=== PATIENT | female | born 1955 | race Caucasian/White ===

== ENCOUNTER 2020-03-11 21:59 | Emergency (ER) | payer SELFPAY ==
--- NOTE | 2020-03-11 23:44 | EDM.PDOC ---
<Irwin Savage - Last Filed: 03/11/20 23:44> ED HPI GENERAL MEDICAL PROBLEM - General Chief Complaint: Chest Pain Stated Complaint: CHEST PAIN/BACK PAIN Time Seen by Provider: 03/11/20 23:07 Source of Information: Reports: Patient, RN Notes Reviewed - History of Present Illness INITIAL COMMENTS - FREE TEXT/NARRATIVE: 64 yr old female comes in with pleuritic chest pain that started yesterday, continues today, ant chest pain is worse to take a deep breath. she also has back pain worse with motion and after standing for awhile. When asked if the pain radiates to her shoulder or arm she states her shoulder and arms always hurt. When asked about coughing she starts I always cough from smoking but not currently coughing any worse than ususal. No known fever. 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 Chest Pain Score (Numeric/FACES): 10 Upper Back Pain Score (Numeric/FACES): 10 - Related Data Allergies Allergy/AdvReac Type Severity Reaction Status Date / Time aspirin Allergy Severe Indigestion Verified 03/11/20 22:36 Home Meds: Home Meds Acetaminophen [Tylenol] 500 mg PO ASDIRECTED 03/11/20 [History] Past Medical History Musculoskeletal History: Reports: Arthritis, Back Pain, Chronic - Past Surgical History HEENT Surgical History: Reports: Tonsillectomy Female Surgical History: Reports: Tubal Ligation Social & Family History - Tobacco Use Smoking Status *Q: Current Every Day Smoker Years of Tobacco use: 47 Packs/Tins Daily: 0.5 - Caffeine Use Caffeine Use: Reports: Coffee, Soda - Recreational Drug Use Recreational Drug Use: No ED ROS GENERAL - Review of Systems Review Of Systems: See Below Constitutional: Denies: Fever, Chills, Diaphoresis HEENT: Reports: No Symptoms Respiratory: Reports: Shortness of Breath (mild, chronically) Cardiovascular: Reports: Chest Pain. Denies: Edema GI/Abdominal: Denies: Abdominal Pain, Nausea, Vomiting Musculoskeletal: Reports: Shoulder Pain, Arm Pain, Back Pain Skin: Reports: No Symptoms. Denies: Rash Neurological: Denies: Trouble Speaking, Difficulty Walking, Weakness ED EXAM, GENERAL - Physical Exam Exam: See Below General Appearance: Alert, No Apparent Distress Eye Exam: Bilateral Eye: PERRL Head: Atraumatic Neck: Supple Respiratory/Chest: Lungs Clear, Normal Breath Sounds, Chest Non-Tender, Respiratory Distress (mild tachypnea) Cardiovascular: Regular Rate, Rhythm GI/Abdominal: Soft, Non-Tender Extremities: Normal Inspection. No: Pedal Edema, Leg Pain, Increased Warmth, Redness Neurological: Alert, Oriented, No Motor/Sensory Deficits Skin Exam: Warm, Dry, Normal Color, No Rash EKG INTERPRETATION EKG Date: 03/11/20 Rhythm: NSR Earth: Normal QRS: RBBB ST-T: Other (Large t waves V3 V6) Course - Re-Assessments/Exams Free Text/Narrative Re-Assessment/Exam: 03/11/20 23:50 It is well after end of my shift, have seen patient to get things started. EKG shows RBB, CXR nl. Her pain is pleuritic. Labs are still all pending. Will transfer care at this time to Dr Rosales. 03/11/20 23:45 Departure - Departure Disposition: [facility] Clinical Impression: Musculoskeletal chest pain, Elevated d-dimer Referrals: Nanda Luciano [employer] [Primary Care Provider] - Forms: ED Department Discharge Sepsis Event Note (ED) - Evaluation Sepsis Screening Result: No Definite Risk <Zack Rosales - Last Filed: 03/12/20 01:49> Course - Vital Signs Last Recorded V/S: Last Vital Signs Temp 36.2 C 03/11/20 22:27 Pulse 97 03/11/20 22:27 Resp 25 H 03/11/20 22:27 BP 182/104 H 03/11/20 22:27 Pulse Ox 97 03/11/20 22:27 - Orders/Labs/Meds Orders: Active Orders 24 hr Category Date Time Status EKG 12 Lead [EKG Documentation Completion] [RC] STAT Care 03/11/20 23:08 Active Ang Chest [CT] Stat Exams 03/12/20 00:53 Stop Req Chest 1V Frontal [CR] Stat Exams 03/11/20 23:08 Taken CORONAVIRUS COVID-19 PCR PHL Stat Lab 03/12/20 00:55 Ordered Labs: Laboratory Tests 03/11/20 03/11/20 03/11/20 Range/Units 23:14 23:14 23:41 WBC (3.98-10.04) K/mm3 RBC (3.98-5.22) M/mm3 Hgb (11.2-15.7) gm/dl Hct (34.1-44.9) % MCV (79.4-94.8) fl MCH (25.6-32.2) pg MCHC (32.2-35.5) g/dl RDW Std Deviation (36.4-46.3) fL Plt Count (182-369) K/mm3 MPV (9.4-12.3) fl Neut % (Auto) (34.0-71.1) % Lymph % (Auto) (19.3-51.7) % [place] % (Auto) (4.7-12.5) % Eos % (Auto) (0.7-5.8) Baso % (Auto) (0.1-1.2) % Neut # (Auto) (1.56-6.13) K/mm3 Lymph # (Auto) (1.18-3.74) K/mm3 [place] # (Auto) (0.24-0.36) K/mm3 Eos # (Auto) (0.04-0.36) K/mm3 Baso # (Auto) (0.01-0.08) K/mm3 Manual Slide Review D-Dimer, Quantitative (0.19-0.50) mg/L Sodium (136-145) mEq/L Potassium (3.5-5.1) mEq/L Chloride (98-107) mEq/L Carbon Dioxide (21-32) mEq/L Anion Gap (5-15) BUN (7-18) mg/dL Creatinine (0.55-1.02) mg/dL Est Cr Clr Drug Dosing mL/min Estimated GFR (MDRD) (>60) mL/min BUN/Creatinine Ratio (14-18) Glucose (80-115) mg/dL Calcium (8.5-10.1) mg/dL Ferritin 156 (8-252) ng/ml Total Bilirubin (0.2-1.0) mg/dL AST (15-37) U/L ALT (14-59) U/L Alkaline Phosphatase (46-116) U/L Lactate Dehydrogenase 145 (81-234) U/L Creatine Kinase 32 (26-192) U/L Troponin I (0.00-0.056) ng/mL C-Reactive Protein 11.9 H* (<1.0) mg/dL Total Protein (6.4-8.2) g/dl Albumin (3.4-5.0) g/dl Globulin gm/dL Albumin/Globulin Ratio (1-2) 03/11/20 03/11/20 03/11/20 Range/Units 23:41 23:41 23:41 WBC 10.33 H (3.98-10.04) K/mm3 RBC 5.01 (3.98-5.22) M/mm3 Hgb 15.2 (11.2-15.7) gm/dl Hct 47.3 H (34.1-44.9) % MCV 94.4 (79.4-94.8) fl MCH 30.3 (25.6-32.2) pg MCHC 32.1 L (32.2-35.5) g/dl RDW Std Deviation 46.4 H (36.4-46.3) fL Plt Count 245 (182-369) K/mm3 MPV 9.9 (9.4-12.3) fl Neut % (Auto) 57.3 (34.0-71.1) % Lymph % (Auto) 27.1 (19.3-51.7) % [place] % (Auto) 11.5 (4.7-12.5) % Eos % (Auto) 2.2 (0.7-5.8) Baso % (Auto) 1.5 H (0.1-1.2) % Neut # (Auto) 5.92 (1.56-6.13) K/mm3 Lymph # (Auto) 2.80 (1.18-3.74) K/mm3 [place] # (Auto) 1.19 H (0.24-0.36) K/mm3 Eos # (Auto) 0.23 (0.04-0.36) K/mm3 Baso # (Auto) 0.15 H (0.01-0.08) K/mm3 Manual Slide Review Normal smear D-Dimer, Quantitative 1.27 H (0.19-0.50) mg/L Sodium 133 L (136-145) mEq/L Potassium 4.5 (3.5-5.1) mEq/L Chloride 95 L (98-107) mEq/L Carbon Dioxide 27 (21-32) mEq/L Anion Gap 15.5 H (5-15) BUN 17 (7-18) mg/dL Creatinine 1.1 H (0.55-1.02) mg/dL Est Cr Clr Drug Dosing 45.88 mL/min Estimated GFR (MDRD) 50 (>60) mL/min BUN/Creatinine Ratio 15.5 (14-18) Glucose 103 (80-115) mg/dL Calcium 8.8 (8.5-10.1) mg/dL Ferritin (8-252) ng/ml Total Bilirubin 0.5 (0.2-1.0) mg/dL AST 15 (15-37) U/L ALT 18 (14-59) U/L Alkaline Phosphatase 87 (46-116) U/L Lactate Dehydrogenase (81-234) U/L Creatine Kinase (26-192) U/L Troponin I < 0.017 (0.00-0.056) ng/mL C-Reactive Protein (<1.0) mg/dL Total Protein 7.2 (6.4-8.2) g/dl Albumin 3.2 L (3.4-5.0) g/dl Globulin 4.0 gm/dL Albumin/Globulin Ratio 0.8 L (1-2) Meds: Medications Discontinued Medications Generic Name Dose Route Start Last Admin Trade Name Freq PRN Reason Stop Dose Admin Sodium Chloride 1,000 mls @ 125 mls/hr 03/12/20 01:00 Normal Saline IV ASDIRECTED CALIN Sodium Chloride 100 mls @ 60 mls/sec 03/12/20 01:15 Normal Saline IV ASDIRECTED CALIN Iopamidol 100 ml 03/12/20 01:10 [id number] (76%) IVPUSH 03/12/20 01:11 ONETIME ONE - Re-Assessments/Exams Free Text/Narrative Re-Assessment/Exam: 03/12/20 00:[address] Savage. The patient's CBC is remarkable for WBC count mildly elevated at 10.33, and a Hct mildly elevated at 47.3 with a Hgb normal at 15.2, and the remainder of her CBC being unremarkable. Her CMP is remarkable for a sodium slightly depressed at 133, and anion gap slightly elevated at 15.5 with a bicarbonate normal at 27, and a Cr slightly elevated at 1.1 with a BUN normal at 17, and the remainder of her CMP being unremarkable. Her troponin is undetectably low. Her D-dimer is elevated at 1.27. Her CRP is elevated at 11.9. 03/12/20 00:57 Test results discussed with the patient. While her history is most consistent with a musculoskeletal etiology for her pain, due to her elevated d-dimer, I offered to perform a CT angiogram of her chest to rule out PE, and the patient agreed. The patient's elevated CRP is most likely due to atherosclerosis, since the patient has a long history of smoking, however, the combination of an elevated d-dimer and elevated CRP is concerning for COVID-19, therefore I offered to test her for that. The patient is adamant that she does not want anything stuck up her nose, therefore our 2-hour Cepheid test is not possible, however, I have ordered the send out test to the [facility]. It will likely take a few days before we have the results, but it is better than nothing. In the mean time, however, I have also added a ferritin, LDH, and CPK, which, if elevated, would strongly suggest that she is infected with the SARS-CoV-2 virus. 03/12/20 01:23 Notified by Keyonna MAHER that the patient was refusing to have IV contrast. I went and talked to her. She stated that she does not want IV contrast because "I have heard that it lawrence like hell". Had earlier explained to the patient how a CT angiogram works, including that IV contrast is given, however, she apparently did not understand that. I explained to the patient that without IV contrast, a CT angiogram cannot be performed, but the patient still insisted on not receiving IV contrast. I will therefore cancel the CT angiogram and IV fluid. 03/12/20 01:47 Notified by Keyonna MAHER that the patient wanted to leave AMA, however, her ferritin has returned within normal limits at 156, her LDH within normal limits at 148, and her CPK within normal limits at 32, indicating that if she has COVID-19, it appears to be mild. The patient has not yet been swabbed for the SARS-CoV-2 virus. Instead of leaving AMA, I was prepared to discharge the patient home, however, when I went to the patient's room, it was empty. She appears to have eloped the ED. Departure - Departure Time of Disposition: 01:48 Condition: Good Sepsis Event Note (ED) - Focused Exam Vital Signs: Vital Signs Temp Pulse Resp BP Pulse Ox 03/11/20 22:27 36.2 C 97 25 H 182/104 H 97 - My Orders Last 24 Hours: My Active Orders 03/12/20 00:53 Ang Chest [CT] Stat 03/12/20 00:55 CORONAVIRUS COVID-19 PCR PHL Stat - Assessment/Plan Last 24 Hours: My Active Orders 03/12/20 00:53 Ang Chest [CT] Stat 03/12/20 00:55 CORONAVIRUS COVID-19 PCR PHL Stat
[2020-03-12] MEDS ORDERED: Sodium Chloride 0.9% 1,000 ML IV SCH (01:00)
[2020-03-12] MEDS ORDERED: Iopamidol 755 Mg/ML 100 ML Bottle IVPUSH ONE (01:10)
[2020-03-12] MEDS ORDERED: Sodium Chloride 0.9% 100 ML IV SCH (01:15)
--- NOTE | 2020-03-12 10:27 | CR ---
Chest: Frontal view of the chest was obtained. Comparison: No previous chest x-ray. Heart size and mediastinum are normal. Lungs are clear with no acute parenchymal change. Bony structures show scoliosis within the spine with no acute osseous finding being seen. Impression: 1. Nothing acute is appreciated on frontal chest x-ray. Diagnostic code #2 I agree with preliminary report issued by [facility] ([facility] preliminary report dictated on 03/12/20, 12:40 AM Central Daylight Time) Study was dictated in MDT
== END 2020-03-12 01:55 | disposition left against medical advice (07) ==
LOC: JD.ED 21:59 → SUPCPDRO 21:59 → JD.ED 03-12 01:55
DX: R07.89 Other chest pain (principal); R07.81 Pleurodynia; R79.1 Abnormal coagulation profile; R06.82 Tachypnea, not elsewhere classified; F17.210 Nicotine dependence, cigarettes, uncomplicated; Z98.51 Tubal ligation status; Z88.6 Allergy status to analgesic agent
CPT/HCPCS: 36415; 71045; 71045-26; 80053; 82550; 82728; 83615; 84484; 85025; 85379; 86140; 93005; 93010; 99283; 99284-25

== ENCOUNTER 2021-06-14 09:07 | Observation (INO) | payer SELFPAY ==
[2021-06-14] MEDS ORDERED: Sodium Chloride 0.9% 10 ML Syringe FLUSH PRN ×2 (09:38→10:31)
[2021-06-14] MEDS ORDERED: Sodium Chloride 0.9% 1,000 ML IV STA (09:38)
[2021-06-14] MEDS ORDERED: Ondansetron 4 MG/2 ML SDV IVPUSH ONE (09:38)
[2021-06-14] MEDS ORDERED: HYDROmorphone 1 MG/ML Syringe IVPUSH ONE (09:40)
--- NOTE | 2021-06-14 09:58 | EDM.PDOC ---
ED HPI GENERAL MEDICAL PROBLEM - General Chief Complaint: Abdominal Pain Stated Complaint: ABDOMINAL PAIN Time Seen by Provider: 06/14/21 09:18 Source of Information: Reports: Patient History Limitations: Reports: No Limitations - History of Present Illness INITIAL COMMENTS - FREE TEXT/NARRATIVE: The patient presents with right lower abdominal pain. The patient said this has been going on for about a week. She had pain in the epigastric area for about 5 days and now since yesterday the pain in the right lower abdomen. She has nausea and vomiting. She has no diarrhea or dysuria. She has no fever, chills, cough, chest pain or shortness of breath. She still has a gallbladder and appendix. Onset: Gradual Duration: Day(s): Location: Reports: Abdomen Quality: Reports: Sharp Severity: Severe Improves with: Reports: None Worsens with: Reports: None Associated Symptoms: Reports: Nausea/Vomiting. Denies: Chest Pain, Cough, Fever/Chills, Headaches, Shortness of Breath Right Lower Abdomen Pain Score (Numeric/FACES): 10 - Related Data Allergies Allergy/AdvReac Type Severity Reaction Status Date / Time aspirin Allergy Severe Indigestion Verified 03/11/20 22:36 Home Meds: Home Meds Acetaminophen [Tylenol] 500 mg PO ASDIRECTED 03/11/20 [History] Past Medical History Musculoskeletal History: Reports: Arthritis, Back Pain, Chronic - Past Surgical History HEENT Surgical History: Reports: Tonsillectomy Female Surgical History: Reports: Tubal Ligation Social & Family History - Caffeine Use Caffeine Use: Reports: Coffee, Soda ED ROS GENERAL - Review of Systems Review Of Systems: See Below Constitutional: Reports: No Symptoms HEENT: Reports: No Symptoms Respiratory: Reports: No Symptoms Cardiovascular: Reports: No Symptoms Endocrine: Reports: No Symptoms GI/Abdominal: Reports: Abdominal Pain, Nausea. Denies: Diarrhea, Vomiting : Reports: No Symptoms Musculoskeletal: Reports: No Symptoms ED EXAM, GI/ABD - Physical Exam Exam: See Below Exam Limited By: No Limitations General Appearance: Alert, No Apparent Distress Ears: Normal External Exam Nose: Normal Inspection Head: Atraumatic, Normocephalic Neck: Normal Inspection, Supple, Non-Tender Respiratory/Chest: No Respiratory Distress, Lungs Clear, Normal Breath Sounds Cardiovascular: Regular Rate, Rhythm, No Edema, No Murmur GI/Abdominal Exam: Soft, Non-Tender, No Organomegaly, No Mass Back Exam: Normal Inspection Course - Vital Signs Last Recorded V/S: Last Vital Signs Temp 99.3 F 06/14/21 09:36 Pulse 73 06/14/21 13:33 Resp 12 06/14/21 13:33 BP 128/66 06/14/21 11:43 Pulse Ox 99 06/14/21 13:33 - Orders/Labs/Meds Orders: Active Orders 24 hr Category Date Time Status Patient Status [ADT] Routine ADT 06/14/21 12:25 Active Peripheral IV Care [RC] . DIRECTED Care 06/14/21 09:39 Active BLOOD CULTURE [MREF] Stat Lab 06/14/21 12:17 Received BLOOD CULTURE [MREF] Stat Lab 06/14/21 12:27 Received CULTURE URINE [MREF] Stat Lab 06/14/21 09:49 Received Sodium Chloride 0.9% [Saline Flush] Med 06/14/21 09:38 Active 10 ml FLUSH ASDIRECTED PRN Sodium Chloride 0.9% [Saline Flush] Med 06/14/21 10:31 Active 10 ml FLUSH ONETIME PRN Blood Culture x2 Reflex Set [OM.PC] Stat Oth 06/14/21 11:53 Ordered ED Antiemetic Medication Reflex [OM.PC] Stat Oth 06/14/21 09:39 Ordered Peripheral IV Insertion Adult [OM.PC] Stat Oth 06/14/21 09:38 Ordered Schedule Procedure [COMM] Stat Ot 06/14/21 12:25 Ordered Medication Orders Sodium Chloride (Sodium Chloride 0.9% 10 Ml Syringe) 10 ml FLUSH ASDIRECTED PRN PRN Reason: Keep Vein Open Last Admin: 06/14/21 09:58 Dose: 10 ml Documented by: LULU Sodium Chloride (Sodium Chloride 0.9% 10 Ml Syringe) 10 ml FLUSH ONETIME PRN PRN Reason: IV FLUSH Last Admin: 06/14/21 10:46 Dose: 10 ml Documented by: MARGUERITE Labs: Laboratory Tests 06/14/21 06/14/21 06/14/21 Range/Units 09:25 09:25 09:49 WBC 11.96 H (3.98-10.04) K/mm3 RBC 5.29 H (3.98-5.22) M/mm3 Hgb 16.0 H (11.2-15.7) gm/dl Hct 51.0 H (34.1-44.9) % MCV 96.4 H (79.4-94.8) fl MCH 30.2 (25.6-32.2) pg MCHC 31.4 L (32.2-35.5) g/dl RDW Std Deviation 46.9 H (36.4-46.3) fL Plt Count 287 (182-369) K/mm3 MPV 10.7 (9.4-12.3) fl Neut % (Auto) 63.7 (34.0-71.1) % Lymph % (Auto) 21.2 (19.3-51.7) % [place] % (Auto) 12.3 (4.7-12.5) % Eos % (Auto) 2.1 (0.7-5.8) Baso % (Auto) 0.3 (0.1-1.2) % Neut # (Auto) 7.63 H (1.56-6.13) K/mm3 Lymph # (Auto) 2.53 (1.18-3.74) K/mm3 [place] # (Auto) 1.47 H (0.24-0.36) K/mm3 Eos # (Auto) 0.25 (0.04-0.36) K/mm3 Baso # (Auto) 0.03 (0.01-0.08) K/mm3 Sodium 135 L (136-145) mEq/L Potassium 5.0 (3.5-5.1) mEq/L Chloride 98 (98-107) mEq/L Carbon Dioxide 32 (21-32) mEq/L Anion Gap 10.0 (5-15) BUN 14 (7-18) mg/dL Creatinine 1.2 H (0.55-1.02) mg/dL Est Cr Clr Drug Dosing 41.61 mL/min Estimated GFR (MDRD) 45 (>60) mL/min BUN/Creatinine Ratio 11.7 L (14-18) Glucose 94 (70-99) mg/dL Calcium 9.1 (8.5-10.1) mg/dL Total Bilirubin 0.8 (0.2-1.0) mg/dL AST 23 (15-37) U/L ALT 23 (14-59) U/L Alkaline Phosphatase 101 (46-116) U/L Total Protein 7.6 (6.4-8.2) g/dl Albumin 3.4 (3.4-5.0) g/dl Globulin 4.2 gm/dL Albumin/Globulin Ratio 0.8 L (1-2) Lipase 77 (73-393) U/L Urine Color Yellow (Yellow) Urine Appearance Clear (Clear) Urine pH 6.0 (5.0-8.0) Ur Specific [place] 1.020 (1.005-1.030) Urine Protein 2+ H (Negative) Urine Glucose (UA) Negative (Negative) Urine Ketones Negative (Negative) Urine Occult Blood Trace-intact H (Negative) Urine Nitrite Positive H (Negative) Urine Bilirubin Negative (Negative) Urine Urobilinogen 0.2 (0.2-1.0) Ur Leukocyte Esterase 1+ H (Negative) Urine RBC 5-10 H (0-5) /hpf Urine WBC 10-20 H (0-5) /hpf Ur Squamous Epith Cells 0-5 (0-5) /hpf Urine Bacteria Moderate H (FEW) /hpf Urine Mucus Few (FEW) /hpf SARS-CoV-2 RNA (NUHA) (NEGATIVE) 06/14/21 Range/Units 11:27 WBC (3.98-10.04) K/mm3 RBC (3.98-5.22) M/mm3 Hgb (11.2-15.7) gm/dl Hct (34.1-44.9) % MCV (79.4-94.8) fl MCH (25.6-32.2) pg MCHC (32.2-35.5) g/dl RDW Std Deviation (36.4-46.3) fL Plt Count (182-369) K/mm3 MPV (9.4-12.3) fl Neut % (Auto) (34.0-71.1) % Lymph % (Auto) (19.3-51.7) % [place] % (Auto) (4.7-12.5) % Eos % (Auto) (0.7-5.8) Baso % (Auto) (0.1-1.2) % Neut # (Auto) (1.56-6.13) K/mm3 Lymph # (Auto) (1.18-3.74) K/mm3 [place] # (Auto) (0.24-0.36) K/mm3 Eos # (Auto) (0.04-0.36) K/mm3 Baso # (Auto) (0.01-0.08) K/mm3 Sodium (136-145) mEq/L Potassium (3.5-5.1) mEq/L Chloride (98-107) mEq/L Carbon Dioxide (21-32) mEq/L Anion Gap (5-15) BUN (7-18) mg/dL Creatinine (0.55-1.02) mg/dL Est Cr Clr Drug Dosing mL/min Estimated GFR (MDRD) (>60) mL/min BUN/Creatinine Ratio (14-18) Glucose (70-99) mg/dL Calcium (8.5-10.1) mg/dL Total Bilirubin (0.2-1.0) mg/dL AST (15-37) U/L ALT (14-59) U/L Alkaline Phosphatase (46-116) U/L Total Protein (6.4-8.2) g/dl Albumin (3.4-5.0) g/dl Globulin gm/dL Albumin/Globulin Ratio (1-2) Lipase (73-393) U/L Urine Color (Yellow) Urine Appearance (Clear) Urine pH (5.0-8.0) Ur Specific [place] (1.005-1.030) Urine Protein (Negative) Urine Glucose (UA) (Negative) Urine Ketones (Negative) Urine Occult Blood (Negative) Urine Nitrite (Negative) Urine Bilirubin (Negative) Urine Urobilinogen (0.2-1.0) Ur Leukocyte Esterase (Negative) Urine RBC (0-5) /hpf Urine WBC (0-5) /hpf Ur Squamous Epith Cells (0-5) /hpf Urine Bacteria (FEW) /hpf Urine Mucus (FEW) /hpf SARS-CoV-2 RNA (NUHA) Negative (NEGATIVE) Meds: Medications Generic Name Dose Route Start Last Admin Trade Name Freq PRN Reason Stop Dose Admin Sodium Chloride 10 ml 06/14/21 09:38 06/14/21 09:58 Sodium Chloride 0.9% 10 Ml Syringe FLUSH 10 ml ASDIRECTED PRN Administration Keep Vein Open Sodium Chloride 10 ml 06/14/21 10:31 06/14/21 10:46 Sodium Chloride 0.9% 10 Ml Syringe FLUSH 10 ml ONETIME PRN Administration IV FLUSH Discontinued Medications Generic Name Dose Route Start Last Admin Trade Name Sami PRN Reason Stop Dose Admin Diatrizoate Meglum/Diatrizoate Sod 120 ml 06/14/21 10:31 06/14/21 10:46 Diatrizoate Meglumine/Diatrizoate Sodium 37% 120 Ml Bottle PO 06/14/21 10:32 30 ml ONETIME ONE Administration Hydromorphone HCl 1 mg 06/14/21 09:40 06/14/21 09:59 Hydromorphone 1 Mg/Ml Syringe IVPUSH 06/14/21 09:41 1 mg ONETIME ONE Administration Hydromorphone HCl 0.5 mg 06/14/21 15:49 Hydromorphone 0.5 Mg/0.5 Ml Syringe IVPUSH 06/14/21 15:50 ONETIME ONE Sodium Chloride 1,000 mls @ 1,000 mls/hr 06/14/21 09:38 06/14/21 09:57 Normal Saline IV 06/14/21 10:37 1,000 mls/hr .BOLUS STA Administration Ceftriaxone Sodium 2 gm/ 100 mls @ 200 mls/hr 06/14/21 11:56 06/14/21 12:10 Sodium Chloride IV 06/14/21 12:25 200 mls/hr ONETIME ONE Administration Iopamidol 100 ml 06/14/21 10:31 06/14/21 10:46 Iopamidol 612 Mg/Ml 100 Ml Bottle IVPUSH 06/14/21 10:32 100 ml ONETIME ONE Administration Ondansetron HCl 4 mg 06/14/21 09:38 06/14/21 09:58 Ondansetron 4 Mg/2 Ml Sdv IVPUSH 06/14/21 09:39 4 mg ONETIME ONE Administration - Re-Assessments/Exams Free Text/Narrative Re-Assessment/Exam: 06/14/21 13:54 I ordered an IV NS 1L bolus, zofran 4mg IV, dilaudid 1mg IV, labs, UA and a CT of her abdomen and pelvis. Her WBC is elevated at 11.96. Her Hgb is elevated at 16. Her Na is elevated at 135. Her creatinine is elevated at 1.2. Her lipase is normal at 77. Her UA shows a UTI. I have ordered a urine culture. Her CT shows dilated gallbladder, dilated CHD and mild intrahepatic biliary duct dilatation. Inflammatory type change is also noted around the gallbladder. Findings are suspicious for acute cholecystitis. Please correlate with the patient's symptoms. Other incidental findings as noted above which appear to be chronic. I ordered rocephin 2 grams IV. I called Dr Rizvi for her cholecystitis. He came to see her and he recommended an MRCP be done. He is worried she may have a biliary obstruction. I have ordered that. 06/14/21 15:52 Her MRCP shows dilated gallbladder containing two gallstones measuring 9mm and 1.6cm. CHD is dilated up to 1.2cm and CBD is dilated up to 1.2cm. Questionable small 1.5mm stone within the dilated up to 1.2cm. Questionable small 1.5mm stone within the distal CBD. Two cysts within the left kidney. No additional abnormality is seen. Dr Rizvi came to talk with the patient and he will take her to the OR later today. Departure - Departure Time of Disposition: 16:00 Disposition: Refer to Observation Condition: Fair Clinical Impression: Cholecystitis - Discharge Information Referrals: Nanda Luciano [employer] [Primary Care Provider] - Forms: ED Department Discharge Sepsis Event Note (ED) - Evaluation Sepsis Screening Result: No Definite Risk - Focused Exam Vital Signs: Vital Signs Temp Pulse Resp BP Pulse Ox 06/14/21 13:33 73 12 99 06/14/21 11:43 81 128/66 99 06/14/21 09:36 99.3 F 93 22 H 179/88 H 91 L - My Orders Last 24 Hours: My Active Orders 06/14/21 09:38 Sodium Chloride 0.9% [Saline Flush] 10 ml FLUSH ASDIRECTED PRN Peripheral IV Insertion Adult [OM.PC] Stat 06/14/21 09:39 Peripheral IV Care [RC] . DIRECTED ED Antiemetic Medication Reflex [OM.PC] Stat 06/14/21 09:49 CULTURE URINE [MREF] Stat 06/14/21 10:31 Sodium Chloride 0.9% [Saline Flush] 10 ml FLUSH ONETIME PRN 06/14/21 11:53 Blood Culture x2 Reflex Set [OM.PC] Stat 06/14/21 12:17 BLOOD CULTURE [MREF] Stat 06/14/21 12:25 Patient Status [ADT] Routine Schedule Procedure [COMM] Stat 06/14/21 12:27 BLOOD CULTURE [MREF] Stat - Assessment/Plan Last 24 Hours: My Active Orders 06/14/21 09:38 Sodium Chloride 0.9% [Saline Flush] 10 ml FLUSH ASDIRECTED PRN Peripheral IV Insertion Adult [OM.PC] Stat 06/14/21 09:39 Peripheral IV Care [RC] . DIRECTED ED Antiemetic Medication Reflex [OM.PC] Stat 06/14/21 09:49 CULTURE URINE [MREF] Stat 06/14/21 10:31 Sodium Chloride 0.9% [Saline Flush] 10 ml FLUSH ONETIME PRN 06/14/21 11:53 Blood Culture x2 Reflex Set [OM.PC] Stat 06/14/21 12:17 BLOOD CULTURE [MREF] Stat 06/14/21 12:25 Patient Status [ADT] Routine Schedule Procedure [COMM] Stat 06/14/21 12:27 BLOOD CULTURE [MREF] Stat
[2021-06-14] MEDS ORDERED: Iopamidol 612 MG/ML 100 ML Bottle IVPUSH ONE (10:31)
[2021-06-14] MEDS: Diatrizoate Meglumine/Diatrizoate Sodium 37% 120 ML Bottle PO ONE ×2 (10:40→10:46)
--- NOTE | 2021-06-14 11:08 | CT ---
CT abdomen and pelvis Technique: Multiple axial sections were obtained from above the dome of the diaphragm inferiorly through the pubic symphysis. Intravenous and oral contrast were utilized. Delayed images were obtained through the bladder. Reconstructed coronal and sagittal images were obtained. Findings: Visualized lung bases show mild emphysematous change. Nothing acute is seen. Liver shows mild intrahepatic biliary duct dilatation. Common bile duct is slightly prominent. Gallbladder is diffusely dilated with surrounding inflammatory change. Findings are concerning for acute cholecystitis Spleen size is normal. Kidneys show symmetric contrast enhancement with no hydronephrosis or mass being seen. Pancreas shows no discrete abnormality. Abdominal aorta shows diffuse atherosclerotic change which continues into the iliac vessels. No aneurysm is seen. No mesenteric abnormalities are seen. Appendix is seen which is normal in size. Diverticuli are seen within the sigmoid colon with no findings of diverticulitis. No pelvic mass or adenopathy is seen. Delayed images shows contrast within the distal ureters and within the bladder. Bone window settings were reviewed which show a compression deformity within L1 which is most likely old. No acute osseous finding is appreciated. Impression: 1. Dilated gallbladder, dilated CHD and mild intrahepatic biliary duct dilatation. Inflammatory type change is also noted around the gallbladder. Findings are suspicious for acute cholecystitis. Please correlate with the patient's symptoms. 2. Other incidental findings as noted above which appear to be chronic. Diagnostic code #3
[2021-06-14] MEDS ORDERED: cefTRIAXone 2 GM in Sodium Chloride 0.9% 100 ML IV ONE (11:56)
--- NOTE | 2021-06-14 14:59 | MR ---
MR abdomen Technique: Various axial and coronal sequences were obtained of the abdomen. MRCP image was also obtained. Comparison: Prior CT abdomen and pelvis study performed earlier on the same day (10:40 AM). Findings: Gallbladder is somewhat dilated. Two low signal abnormalities are seen within the gallbladder compatible with gallstones measuring 9 mm and 1.6 cm. Common bile duct is dilated to 1.2 cm. Common hepatic duct is dilated at 1.2 cm. Questionable small filling defect is noted within the distal CBD measuring about 1.5 mm possibly due to a small retained stone. Liver shows no focal abnormality. Small cysts are seen within the left kidney. Right kidney shows no cysts. Pancreas shows no discrete abnormality. Spleen size is normal. Impression: 1. Dilated gallbladder containing two gallstones measuring 9 mm and 1.6 cm. CHD is dilated up to 1.2 cm and CBD is dilated up to 1.2 cm. Questionable small 1.5 mm stone within the distal CBD. 2. Two cysts within the left kidney. 3. No additional abnormality is seen. Diagnostic code #3
[2021-06-14] MEDS ORDERED: HYDROmorphone 0.5 MG/0.5 ML Syringe IVPUSH ONE (15:49)
--- NOTE | 2021-06-14 16:10 | PCM.PREANE ---
Preanesthetic Assessment - Procedure Proposed Procedure: laparoscopic Cholecystectomy - Anesthesia/Transfusion/Family Hx Anesthesia History: Prior Anesthesia Without Reaction Family History of Anesthesia Reaction: No Transfusion History: No Prior Transfusion(s) - Review of Systems General: Weakness, Fatigue, Malaise Pulmonary: Shortness of Breath (emphysema), Cough Cardiovascular: Chest Pain ("heart burn?"), Dyspnea on Exertion, Lightheadedness Gastrointestinal: Abdominal Pain, Decreased Appetite Neurological: No Symptoms Other: Reports: Easy Bleeding, Easy Bruising, Liver Problems, Anxiety - Physical Assessment NPO Status Date: 06/13/21 NPO Status Time: 00:00 Vital Signs: Last Vital Signs Temp 37.4 C 06/14/21 09:36 Pulse 73 06/14/21 13:33 Resp 12 06/14/21 13:33 BP 128/66 06/14/21 11:43 Pulse Ox 99 06/14/21 13:33 Height: 1.73 m Weight: 57.153 kg ASA Class: 3 Mental Status: Alert & Oriented x3 Airway Class: Mallampati = 2 Dentition: Reports: Dentures Thyro-Mental Finger Breadths: 3 Mouth Opening Finger Breadths: 3 ROM/Head Extension: Limited/Partial Lungs: Clear to Auscultation, Normal Respiratory Effort, Decreased Breath Sounds Cardiovascular: Regular Rate, Regular Rhythm - Lab Values: Laboratory Last Values WBC 11.96 K/mm3 (3.98-10.04) H 06/14/21 09:25 RBC 5.29 M/mm3 (3.98-5.22) H 06/14/21 09:25 Hgb 16.0 gm/dl (11.2-15.7) H 06/14/21 09:25 Hct 51.0 % (34.1-44.9) H 06/14/21 09:25 MCV 96.4 fl (79.4-94.8) H 06/14/21 09:25 MCH 30.2 pg (25.6-32.2) 06/14/21 09:25 MCHC 31.4 g/dl (32.2-35.5) L 06/14/21 09:25 RDW Std Deviation 46.9 fL (36.4-46.3) H 06/14/21 09:25 Plt Count 287 K/mm3 (182-369) 06/14/21 09:25 MPV 10.7 fl (9.4-12.3) 06/14/21 09:25 Neut % (Auto) 63.7 % (34.0-71.1) 06/14/21 09:25 Lymph % (Auto) 21.2 % (19.3-51.7) 06/14/21 09:25 [place] % (Auto) 12.3 % (4.7-12.5) 06/14/21 09:25 Eos % (Auto) 2.1 (0.7-5.8) 06/14/21 09:25 Baso % (Auto) 0.3 % (0.1-1.2) 06/14/21 09:25 Neut # (Auto) 7.63 K/mm3 (1.56-6.13) H 06/14/21 09:25 Lymph # (Auto) 2.53 K/mm3 (1.18-3.74) 06/14/21 09:25 [place] # (Auto) 1.47 K/mm3 (0.24-0.36) H 06/14/21 09:25 Eos # (Auto) 0.25 K/mm3 (0.04-0.36) 06/14/21 09:25 Baso # (Auto) 0.03 K/mm3 (0.01-0.08) 06/14/21 09:25 Sodium 135 mEq/L (136-145) L 06/14/21 09:25 Potassium 5.0 mEq/L (3.5-5.1) 06/14/21 09:25 Chloride 98 mEq/L (98-107) 06/14/21 09:25 Carbon Dioxide 32 mEq/L (21-32) 06/14/21 09:25 Anion Gap 10.0 (5-15) 06/14/21 09:25 BUN 14 mg/dL (7-18) 06/14/21 09:25 Creatinine 1.2 mg/dL (0.55-1.02) H 06/14/21 09:25 Est Cr Clr Drug Dosing 41.61 mL/min 06/14/21 09:25 Estimated GFR (MDRD) 45 mL/min (>60) 06/14/21 09:25 BUN/Creatinine Ratio 11.7 (14-18) L 06/14/21 09:25 Glucose 94 mg/dL (70-99) 06/14/21 09:25 Calcium 9.1 mg/dL (8.5-10.1) 06/14/21 09:25 Total Bilirubin 0.8 mg/dL (0.2-1.0) 06/14/21 09:25 AST 23 U/L (15-37) 06/14/21 09:25 ALT 23 U/L (14-59) 06/14/21 09:25 Alkaline Phosphatase 101 U/L (46-116) 06/14/21 09:25 Total Protein 7.6 g/dl (6.4-8.2) 06/14/21 09:25 Albumin 3.4 g/dl (3.4-5.0) 06/14/21 09:25 Globulin 4.2 gm/dL 06/14/21 09:25 Albumin/Globulin Ratio 0.8 (1-2) L 06/14/21 09:25 Lipase 77 U/L (73-393) 06/14/21 09:25 Urine Color Yellow (Yellow) 06/14/21 09:49 Urine Appearance Clear (Clear) 06/14/21 09:49 Urine pH 6.0 (5.0-8.0) 06/14/21 09:49 Ur Specific [place] 1.020 (1.005-1.030) 06/14/21 09:49 Urine Protein 2+ (Negative) H 06/14/21 09:49 Urine Glucose (UA) Negative (Negative) 06/14/21 09:49 Urine Ketones Negative (Negative) 06/14/21 09:49 Urine Occult Blood Trace-intact (Negative) H 06/14/21 09:49 Urine Nitrite Positive (Negative) H 06/14/21 09:49 Urine Bilirubin Negative (Negative) 06/14/21 09:49 Urine Urobilinogen 0.2 (0.2-1.0) 06/14/21 09:49 Ur Leukocyte Esterase 1+ (Negative) H 06/14/21 09:49 Urine RBC 5-10 /hpf (0-5) H 06/14/21 09:49 Urine WBC 10-20 /hpf (0-5) H 06/14/21 09:49 Ur Squamous Epith Cells 0-5 /hpf (0-5) 06/14/21 09:49 Urine Bacteria Moderate /hpf (FEW) H 06/14/21 09:49 Urine Mucus Few /hpf (FEW) 06/14/21 09:49 SARS-CoV-2 RNA (NUHA) Negative (NEGATIVE) 06/14/21 11:27 - Allergies Allergies/Adverse Reactions: Allergies Allergy/AdvReac Type Severity Reaction Status Date / Time aspirin Allergy Severe Indigestion Verified 03/11/20 22:36 - Anesthesia Plan Pre-Op Medication Ordered: None - Acknowledgements Anesthesia Type Planned: General Anesthesia Pt an Appropriate Candidate for the Planned Anesthesia: Yes Alternatives and Risks of Anesthesia Discussed w Pt/Guardian: Yes Pt/Guardian Understands and Agrees with Anesthesia Plan: Yes PreAnesthesia Questionnaire Gastrointestinal History: Reports: GERD Musculoskeletal History: Reports: Arthritis, Back Pain, Chronic - Past Surgical History HEENT Surgical History: Reports: Tonsillectomy Female Surgical History: Reports: Tubal Ligation - SUBSTANCE USE Tobacco Use Status *Q: Current Every Day Tobacco User Tobacco Use Within Last Twelve Months: Cigarettes Second Hand Smoke Exposure: Yes Days Per Week of Alcohol Use: 7 Number of Drinks Per Day: 2 Total Drinks Per Week: 14 Recreational Drug Use History: No - HOME MEDS Home Medications: Home Meds Acetaminophen [Tylenol] 500 mg PO ASDIRECTED 03/11/20 [History] - CURRENT (IN HOUSE) MEDS Current Meds: Current Medications Sodium Chloride (Sodium Chloride 0.9% 10 Ml Syringe) 10 ml FLUSH ASDIRECTED PRN PRN Reason: Keep Vein Open Last Admin: 06/14/21 09:58 Dose: 10 ml Documented by: Sodium Chloride (Sodium Chloride 0.9% 10 Ml Syringe) 10 ml FLUSH ONETIME PRN PRN Reason: IV FLUSH Last Admin: 06/14/21 10:46 Dose: 10 ml Documented by: Discontinued Medications Diatrizoate Meglum/Diatrizoate Sod (Diatrizoate Meglumine/Diatrizoate Sodium 37% 120 Ml Bottle) 120 ml PO ONETIME ONE Stop: 06/14/21 10:32 Last Admin: 06/14/21 10:46 Dose: 30 ml Documented by: Hydromorphone HCl (Hydromorphone 1 Mg/Ml Syringe) 1 mg IVPUSH ONETIME ONE Stop: 06/14/21 09:41 Last Admin: 06/14/21 09:59 Dose: 1 mg Documented by: Hydromorphone HCl (Hydromorphone 0.5 Mg/0.5 Ml Syringe) 0.5 mg IVPUSH ONETIME ONE Stop: 06/14/21 15:50 Last Admin: 06/14/21 15:58 Dose: 0.5 mg Documented by: Sodium Chloride (Normal Saline) 1,000 mls @ 1,000 mls/hr IV .BOLUS STA Stop: 06/14/21 10:37 Last Admin: 06/14/21 09:57 Dose: 1,000 mls/hr Documented by: Ceftriaxone Sodium 2 gm/ (Sodium Chloride) 100 mls @ 200 mls/hr IV ONETIME ONE Stop: 06/14/21 12:25 Last Admin: 06/14/21 12:10 Dose: 200 mls/hr Documented by: Iopamidol (Iopamidol 612 Mg/Ml 100 Ml Bottle) 100 ml IVPUSH ONETIME ONE Stop: 06/14/21 10:32 Last Admin: 06/14/21 10:46 Dose: 100 ml Documented by: Ondansetron HCl (Ondansetron 4 Mg/2 Ml Sdv) 4 mg IVPUSH ONETIME ONE Stop: 06/14/21 09:39 Last Admin: 06/14/21 09:58 Dose: 4 mg Documented by:
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
[2021-06-14] MEDS ORDERED: Midazolam 1 MG/ML 2 ML SDV ONE (16:24)
[2021-06-14] MEDS ORDERED: Rocuronium 50 MG/5 ML Vial ONE (16:24)
[2021-06-14] MEDS ORDERED: fentaNYL 250 MCG/5 ML SDV ONE (16:24)
[2021-06-14] MEDS ORDERED: Ondansetron 4 MG/2 ML SDV ONE (16:24)
[2021-06-14] MEDS ORDERED: Bupivacaine 0.5% 30 ML SDV ONE (16:25)
[2021-06-14] MEDS ORDERED: Lidocaine 1% 4 ML ONE (16:25)
[2021-06-14] MEDS ORDERED: Propofol 200 MG/20 ML SDV ONE (16:25)
[2021-06-14] MEDS ORDERED: Lactated Ringers 1,000 ML ONE ×2 (17:06→17:38)
[2021-06-14] MEDS ORDERED: fentaNYL 100 MCG/2 ML SDV IVPUSH PRN (18:33)
--- NOTE | 2021-06-14 18:34 | PCM.POSTAN ---
POST ANESTHESIA ASSESSMENT - MENTAL STATUS Mental Status: Alert, Oriented - VITAL SIGNS Vital Signs: Last Vital Signs Temp 36.4 C 06/14/21 18:26 Pulse 82 06/14/21 18:26 Resp 9 L 06/14/21 18:26 BP 164/64 H 06/14/21 18:26 Pulse Ox 100 06/14/21 18:26 - RESPIRATORY Respiratory Status: Respiratory Rate WNL, Airway Patent, O2 Saturation Stable, Supplemental Oxygen - CARDIOVASCULAR CV Status: Pulse Rate WNL, Blood Pressure Stable - GASTROINTESTINAL GI Status: No Symptoms - PAIN Pain Score: 0 - POST OP HYDRATION Hydration Status: Adequate & Stable - OBSERVATIONS Free Text/Narrative:: no anesthesia complications noted
--- NOTE | 2021-06-14 18:35 | PCM.PRNOTE ---
- Free Text/Narrative Note: Date: 06/14/2021 Operation: laparoscopic cholecystectomy Indication: acute calculous cholecystitis Surgeon: Ariel Rizvi MD Findings: large, distended and chronically inflamed gallbladder. Critical view of safety obtained. Detailed Report: The patient was taken to the operating room and placed on the table in supine position. Timeout was performed and general endotracheal anesthesia was initiated. The abdomen was prepped and draped in usual sterile fashion. A Veress needle was placed in the left upper quadrant in order to establish pneumoperitoneum. Once pressure reached 15 mmHg, air was aspirated with a needle and syringe just inferior to the umbilicus. A 5 mm bladed trocar was inserted at this site. The 5 mm 30 degree laparoscope was inserted into the abdomen and contents were inspected. There was no inadvertent injury from Veress needle placement and this was removed under laparoscopic visualization. Additional 5 mm ports were placed at the right upper quadrant, 1 more laterally and one along the midclavicular line. The farm assistant port laterally was used to grasp the fundus of the gallbladder with a locking grasper and retracted cephalad. Due to distention of the gallbladder, laparoscopic needle decompression was attempted multiple times. However due to debris within the gallbladder, not much fluid could be aspirated successfully. However enough was aspirated to allow for grasping of the fundus. Once the gallbladder was retracted cephalad, a 12 mm bladed trocar was inserted at the subxiphoid site for the surgeon's right hand. Careful dissection ensued, and the infundibulum and cystic duct were exposed and dissected. A critical view of safety was obtained showing the cystic duct and artery running of the gallbladder with the free edge of the liver visible in the background. Hem-o-hina clips were placed on the cystic duct and cystic artery prior to transection with laparoscopic mariana. 2 clips were left on the stay side of the cystic duct. Hook electrocautery was used to separate the gallbladder from the liver. This was tedious due to the large size of the gallbladder, and small part of the hepatic parenchyma was taken with the specimen. The gallbladder was placed in an Endo Catch bag and removed through the subxiphoid site. The dissection field was i rrigated and suctioned dry. Targeted monopolar energy was applied to achieve satisfactory hemostasis. There was no significant bleeding, but a large piece of Surgicel and FloSeal were placed in the gallbladder fossa for extra assurance of hemostasis. The 12 mm port was removed and fascia was closed with 0 Vicryl using a laparoscopic suture passer. Other ports were removed under laparoscopic visualization and hemostasis was satisfactory. It appeared that the 5 mm port placed just inferior to the umbilicus went through an area where there were adhesions to the anterior abdominal wall. Prior to removal of laparoscopic ports, this was inspected through the lateral ports with the laparoscope and only omentum appeared to be involved at the site of infraumbilical port placement. There was no evidence of bowel injury. Pneumoperitoneum was released and all incisions were closed with running subcuticular Vicryl. Wounds were dressed with Dermabond. A total of 30 cc 0.5% Marcaine was used for local anesthetic throughout the case. The patient tolerated the procedure well, was extubated in the operating room and transferred to the recovery unit in good condition.
--- NOTE | 2021-06-14 18:51 | PCM48HPAN ---
Post Anesthesia Note - EVALUATION WITHIN 48HRS OF ANESTHETIC Vital Signs in Normal Range: Yes Patient Participated in Evaluation: Yes Respiratory Function Stable: Yes Airway Patent: Yes Cardiovascular Function Stable: Yes Hydration Status Stable: Yes Pain Control Satisfactory: Yes Nausea and Vomiting Control Satisfactory: Yes Mental Status Recovered: Yes Vital Signs: Last Vital Signs Temp 36.9 C 06/14/21 18:41 Pulse 80 06/14/21 18:41 Resp 17 06/14/21 18:41 BP 165/74 H 06/14/21 18:41 Pulse Ox 100 06/14/21 18:41
[2021-06-14] MEDS ORDERED: Albuterol 0.083% 2.5 MG/3 ML Neb Soln NEB ONE (20:02)
[2021-06-14] MEDS ORDERED: oxyCODONE 5 MG Tab PO ONE (20:12)
[2021-06-14] MEDS: Lactated Ringers 1,000 ML IV SCH (22:10)
[2021-06-15] MEDS: Lactated Ringers 1,000 ML IV SCH ×3 (01:29→08:32)
[2021-06-15] MEDS: oxyCODONE 5 MG Tab PO PRN ×2 (02:24→06:57)
[2021-06-15] MEDS ORDERED: Acetaminophen 325 MG Tab PO ONE (09:54)
== END 2021-06-15 10:50 | disposition home or self-care (01) ==
LOC: JD.ED 09:07 → JD.SDS 16:24 → JD.OB 21:22 → UNDOADMOB 21:22 → JD.OB 21:23
PROVIDERS: ADMIT Surgery; ATTEND Surgery
DX: K80.12 Calculus of gallbladder with acute and chronic cholecystitis without obstruction (principal); F17.210 Nicotine dependence, cigarettes, uncomplicated; Z88.8 Allergy status to other drugs, medicaments and biological substances; Z79.899 Other long term (current) drug therapy; Z98.890 Other specified postprocedural states; Z01.812 Encounter for preprocedural laboratory examination; Z20.822 Contact with and (suspected) exposure to COVID-19
CPT/HCPCS: 36415; 47562; 74177; 74181; 80053; 81001; 83690; 85025; 87040; 87086; 87088; 87186; 87635; 93005; 96365; 96375; 96376; 99285; A9270; J0696; J1170; J2250; J2370; J2405; J2704; J3010; J3490; J7030; J7120; Q9963; Q9967; 00790; U0002